=== PATIENT | male | born 2000 | race Hispanic/Latino ===

== ENCOUNTER 2022-07-12 00:12 | Emergency (ER) | payer OTHER ==
[~2022-07-12] VITALS: Ht 165.1 cm; Wt 95.3 kg
[2022-07-12] MEDS ORDERED: KETOROLAC 60 MG VIAL (30MG/ML) IM ONE (01:30)
[2022-07-12] MEDS ORDERED: DICL50TA9 PO (03:17)
[2022-07-12 03:43] VITALS: BP 132/78
== END 2022-07-12 03:44 | disposition home or self-care (01) ==
LOC: EDH 00:12
DX: G44.209 Tension-type headache, unspecified, not intractable (principal)
CPT/HCPCS: 99284; 70450; 96372; J1885

== ENCOUNTER 2023-01-16 23:54 | Emergency (ER) | payer OTHER ==
[~2023-01-16] VITALS: Ht 167.6 cm; Wt 103.1 kg
[~2023-01-16 23:54] MED LIST: DICL50TA9 PO
[2023-01-17 00:36] LABS: BASOPHILS % (AUTO) 0.6 % (0.0-5.0); EOSINOPHILS % (AUTO) 6.1 % (0.0-8.0); HEMATOCRIT 45.8 % (42-54); LYMPHOCYTES % (AUTO) 32.8 % (21.0-51.0); MEAN CORPUSCULAR HEMOGLOBIN 28.4 pg (27.0-33.0); MEAN CORPUSCULAR HGB CONC 33.6 g/dL (32.0-36.0); MEAN CORPUSCULAR VOLUME 84.5 fL (79-99); MONOCYTES % (AUTO) 7.2 % (3.0-13.0); NEUTROPHILS % (AUTO) 52.8 % (40.0-77.0); PLATELET COUNT (AUTO) 216 K/uL (130-400); RED BLOOD CELL COUNT(AUTO) 5.42 MIL/uL (4.50-6.20); RED CELL DISTRIBUTION WIDTH 12.3 % (11.0-15.5); WHITE BLOOD COUNT (AUTO) 6.3 K/uL (4.8-10.8)
[2023-01-17 00:40] LABS: CREATININE 0.8 mg/dL (0.5-1.5)
[2023-01-17 00:45] LABS: MAGNESIUM 1.9 mg/dL (1.80-2.40); TOTAL PROTEIN, SERUM 7.9 g/dL (6.0-8.3)
[2023-01-17] MEDS ORDERED: FAMO-136 PO (07:17)
[2023-01-17 07:33] VITALS: BP 124/72
== END 2023-01-17 07:34 | disposition home or self-care (01) ==
LOC: EDH 23:54
DX: R07.89 Other chest pain (principal); R79.89 Other specified abnormal findings of blood chemistry; F17.200 Nicotine dependence, unspecified, uncomplicated; Z88.0 Allergy status to penicillin
CPT/HCPCS: 36415; 71045; 80053; 83735; 83880; 84484; 85025; 85378; 93005